=== PATIENT | male | born 1950 | race Caucasian/White ===

== ENCOUNTER 2017-11-24 18:21 | Emergency (ER) | payer MEDICARE ==
[~2017-11-24 18:21] MED LIST: CITA20TA4 PO; CLOP75TA PO; FOLI1TAB6 PO; FURO40TA PO; GEMF600T PO; GLUC1000 PO; KEPP10002 PO; LISI-515 PO; LORA-650 PO; SYMB160A INH; VENTAER INH
[2017-11-24 18:32] VITALS: BP 131/61; PULSE 81; RESP 18; TEMP 98.2; O2SAT 97
[2017-11-24 21:32] LABS: AUTOMATED NEUTROPHIL # 4.4 TH/MM3 (1.8-7.7); BASOPHIL # 0.1 TH/MM3 (0-0.2); EOSINOPHIL # 0.3 TH/MM3 (0-0.4); EOSINOPHIL % 3.8 % (0.0-4.0); HEMATOCRIT 37.4 % (39.0-51.0); HEMOGLOBIN 12.7 GM/DL (13.0-17.0); LYMPH % 32.8 % (9.0-44.0); LYMPHOCYTE # 2.7 TH/MM3 (1.0-4.8); MEAN CELL VOLUME 91.6 FL (80.0-100.0); MEAN CORPUSCULAR HEMOGLOBIN 31.2 PG (27.0-34.0); MEAN CORPUSCULAR HGB CONC 34.1 % (32.0-36.0); MEAN PLATELET VOLUME 8.3 FL (7.0-11.0); MONO % 8.9 % (0.0-8.0); MONOCYTE # 0.7 TH/MM3 (0-0.9); NEUT % 53.5 % (16.0-70.0); PLATELET COUNT 361 TH/MM3 (150-450); RED BLOOD COUNT 4.08 MIL/MM3 (4.50-5.90); RED CELL DISTRIBUTION WIDTH 13.5 % (11.6-17.2); WHITE BLOOD COUNT 8.2 TH/MM3 (4.0-11.0)
[2017-11-24 21:36] LABS: PROTHROMBIN TIME - PATIENT 9.9 SEC (9.8-11.6)
[2017-11-24 21:40] LABS: ALBUMIN 3.8 GM/DL (3.4-5.0); AST (GOT) 81 U/L (15-37); BICARBONATE 27.1 MEQ/L (21.0-32.0); BLOOD UREA NITROGEN 49 MG/DL (7-18); CALCIUM 9.3 MG/DL (8.5-10.1); CHLORIDE 104 MEQ/L (98-107); CREATININE 1.38 MG/DL (0.60-1.30); GLOMERULAR FILTRATION RATE 52 ML/MIN (>89); GLUCOSE,RANDOM 95 MG/DL (74-106); SODIUM (NA) 139 MEQ/L (136-145)
[2017-11-24 21:41] LABS: ALT (GPT) 83 U/L (12-78)
[2017-11-24 21:43] LABS: ALKALINE PHOSPHATASE 97 U/L (45-117); TOTAL BILIRUBIN ADULT 0.3 MG/DL (0.2-1.0); TOTAL PROTEIN 8.6 GM/DL (6.4-8.2)
[2017-11-25] MEDS ORDERED: traMADol HCL 50 MG TAB PO ONE (00:45)
--- NOTE | 2017-11-25 01:43 | PD ---
HPI Chief Complaint: Edema Time Seen by Provider: 00:23 Travel History International Travel<30 days: No Contact w/Intl Traveler<30days: No Traveled to known affect area: No History of Present Illness HPI Patient is a 67 year old male who comes in complaining of pain and swelling to his right leg. He says it has been going on for the past 2 weeks. He went to see his doctor who sent him for an US of his leg. He had the US done yesterday and it was negative for blood clot. He says he came in because he continues to have pain in his leg. He denies injury to the leg. He says the pain goes from his foot up to his knee. He has history of blood clots in the past. He is not on any blood thinners. He denies shortness of breath or chest pain. He says nothing seems to make the pain better. PFSH Past Medical History Congestive Heart Failure: Yes COPD: Yes Cerebrovascular Accident: Yes (TIA) Diminished Hearing: No Genitourinary: Yes (HX RENAL FAILURE) Musculoskeletal: Yes (SCOLIOSIS) Myocardial Infarction: Yes (X2) Seizures: Yes Past Surgical History Coronary Artery Bypass Graft: Yes Coronary Stent: Yes (X2) Social History Alcohol Use: No Tobacco Use: No Substance Use: No Allergies-Medications (Allergen,Severity, Reaction): Coded Allergies: No Known Allergies (Unverified Adverse Reaction, Unknown, 11/23/17) Reported Meds & Prescriptions Reported Meds & Active Scripts Active Citalopram (Citalopram Hydrobromide) 20 Mg Tab 20 Mg PO DAILY Allergy Relief (Loratadine) 10 Mg Tab 10 Mg PO DAILY Furosemide 40 Mg Tab 40 Mg PO DAILY Folic Acid 1 Mg Tablet 1 Tab PO DAILY Clopidogrel (Clopidogrel Bisulfate) 75 Mg Tab 75 Mg PO DAILY Lisinopril 20 Mg Tab 20 Mg PO DAILY Keppra (Levetiracetam) 1,000 Mg Tab 1,000 Mg PO BID Reported Trazodone (Trazodone HCl) 50 Mg Tab 50 Mg PO HS Ipratropium Owen 42 Mcg (0.06 %) [place] 1 Spr INH Q8HR Baclofen 20 Mg Tab 20 Mg PO TID Albuterol Neb (Albuterol Sulfate) 2.5 Mg/3 Ml Neb 2.5 Mg NEB TID NEB PRN Gemfibrozil 600 Mg Tab 600 Mg PO BIDAC Take 30 minutes prior to breakfast and dinner. Symbicort Inh (Budesonide/Formoterol Fumarate) 160-4.5 Mcg/Act Aero 2 Puff INH Q12HR Review of Systems Except as stated in HPI: all other systems reviewed are Neg General / Constitutional: No: Fever, Chills HENT: No: Headaches, Lightheadedness Cardiovascular: No: Chest Pain or Discomfort Respiratory: No: Shortness of Breath Gastrointestinal: No: Nausea, Vomiting Genitourinary: No: Flank Pain Musculoskeletal: Positive: Edema, Pain Skin: No Rash, No Change in Pigmentation Neurologic: No: Weakness, Dizziness Physical Exam Narrative GENERAL: Awake and alert, in no acute distress. SKIN: Focused skin assessment warm/dry. No wounds or signs of infection. HEAD: Atraumatic. Normocephalic. EYES: Pupils equal and round. No scleral icterus. ENT: Mucous membranes pink and moist. NECK: Trachea midline. No JVD. CARDIOVASCULAR: Regular rate and rhythm. No murmur appreciated. RESPIRATORY: No accessory muscle use. Clear to auscultation. Breath sounds equal bilaterally. GASTROINTESTINAL: Abdomen soft, non-tender, nondistended. MUSCULOSKELETAL: No obvious deformities. No clubbing. No cyanosis. 2+ pitting edema of the right lower extremity. Pedal pulse intact. NEUROLOGICAL: Awake and alert. No obvious cranial nerve deficits. Motor grossly within normal limits. Normal speech. PSYCHIATRIC: Appropriate mood and affect; insight and judgment normal. Data Data Last Documented VS Vital Signs Date Time Temp Pulse Resp B/P (MAP) Pulse Ox O2 Delivery O2 Flow Rate FiO2 11/25/17 00:22 82 20 98 Room Air 11/24/17 18:32 98.2 131/61 (84) Orders Orders Complete Blood Count With Diff (11/24/17 20:38) Comprehensive Metabolic Panel (11/24/17 20:38) B-Type Natriuretic Peptide (11/24/17 20:38) Act Partial Throm Time (Ptt) (11/24/17 20:38) Prothrombin Time / Inr (Pt) (11/24/17 20:38) Cta Runoff W Iv Contrast W 3d (11/25/17 ) Tramadol (Ultram) (11/25/17 00:45) Iohexol 350 Inj (Omnipaque 350 Inj) (11/25/17 02:00) Labs Laboratory Tests Test 11/24/17 21:00 White Blood Count 8.2 TH/MM3 Red Blood Count 4.08 MIL/MM3 Hemoglobin 12.7 GM/DL Hematocrit 37.4 % Mean Corpuscular Volume 91.6 FL Mean Corpuscular Hemoglobin 31.2 PG Mean Corpuscular Hemoglobin Concent 34.1 % Red Cell Distribution Width 13.5 % Platelet Count 361 TH/MM3 Mean Platelet Volume 8.3 FL Neutrophils (%) (Auto) 53.5 % Lymphocytes (%) (Auto) 32.8 % Monocytes (%) (Auto) 8.9 % Eosinophils (%) (Auto) 3.8 % Basophils (%) (Auto) 1.0 % Neutrophils # (Auto) 4.4 TH/MM3 Lymphocytes # (Auto) 2.7 TH/MM3 Monocytes # (Auto) 0.7 TH/MM3 Eosinophils # (Auto) 0.3 TH/MM3 Basophils # (Auto) 0.1 TH/MM3 CBC Comment DIFF FINAL Differential Comment Prothrombin Time 9.9 SEC Prothromb Time International Ratio 1.0 RATIO Activated Partial Thromboplast Time 25.0 SEC Blood Urea Nitrogen 49 MG/DL Creatinine 1.38 MG/DL Random Glucose 95 MG/DL Total Protein 8.6 GM/DL Albumin 3.8 GM/DL Calcium Level 9.3 MG/DL Alkaline Phosphatase 97 U/L Aspartate Amino Transf (AST/SGOT) 81 U/L Alanine Aminotransferase (ALT/SGPT) 83 U/L Total Bilirubin 0.3 MG/DL Sodium Level 139 MEQ/L Potassium Level 4.7 MEQ/L Chloride Level 104 MEQ/L Carbon Dioxide Level 27.1 MEQ/L Anion Gap 8 MEQ/L Estimat Glomerular Filtration Rate 52 ML/MIN B-Type Natriuretic Peptide 6 PG/ML [facility] Medical Decision Making Medical Screen Exam Complete: Yes Emergency Medical Condition: Yes Medical Record Reviewed: Yes Differential Diagnosis DVT vs dependent edema vs arthritis Narrative Course Patient is a 67 year old male who comes in complaining of right leg pain and swelling. Exam shows edema of the right leg. IV established, labs sent. Labs show no acute abnormalities. US performed at an outside facility shows no evidence of DVT. CTA of the extremity shows no acute abnormalities causing the swelling. Patient given Tramadol. Given a prescription for Tramadol. Advised to follow up with his PCP. Advised to return to the ED as needed for any worsening symptoms. Advised to use a compression stocking and elevate his leg. Diagnosis Primary Impression: Leg edema, right Patient Instructions: Edema (ED), General Instructions Additional Instructions: Take pain medicine as needed. Wear compression stocking. Keep her leg elevated. Return to the ED as needed for any worsening symptoms. Scripts Tramadol (Tramadol) 50 Mg Tab 50 MG PO Q6H Y for PAIN, #10 TAB 0 Refills Prov: Mackenzie Mitchell MD 11/25/17 Disposition: 01 DISCHARGE HOME Condition: Stable Mackenzie Mitchell MD Nov 25, 2017 01:43
[2017-11-25] MEDS ORDERED: IOHEXOL 350 MG/ML 10 ML VIAL (for RAD DIAG) IVCONTRAST ONE (02:00)
[2017-11-25] MEDS ORDERED: ALBU0.08 NEB (02:32)
[2017-11-25] MEDS ORDERED: IPRA0.06 INH (02:32)
[2017-11-25] MEDS ORDERED: BACL20TA PO (02:32)
[2017-11-25] MEDS ORDERED: TRAZ50TA12 PO (02:32)
--- NOTE | 2017-11-25 03:23 | RADRPT ---
EXAM DATE/TIME: 11/25/2017 01:50 [facility] COMPARISON: No previous studies available for comparison. INDICATIONS : Right lower leg pain and swelling. IV CONTRAST: 100 cc Omnipaque 350 (iohexol) IV RADIATION DOSE: 8.73 CTDIvol (mGy) MEDICAL HISTORY : Hypertension. Chronic obstructive pulmonary disease. SURGICAL HISTORY : None. ENCOUNTER: Initial ACUITY: 2 weeks PAIN SCALE: 10/10 LOCATION: Right leg TECHNIQUE: Volumetric scanning was performed using a multi-row detector CT scanner. The data was post processed with a variety of visualization algorithms including full volume maximum intensity projection, multi -planar sliding thin slab reformation, curved planar reformation, and surface rendering techniques. Using automated exposure control and adjustment of the mA and/or kV according to patient size, radiat ion dose was kept as low as reasonably achievable to obtain optimal diagnostic quality images. DICO M format image data is available electronically for review and comparison. FINDINGS: Examination of the lung bases demonstrates no abnormality. No pleural fluid is identified. No pulmona ry nodules are present. Calcified granuloma is present in the right lung. There is decreased density of the liver with respect to the spleen compatible with fatty infiltration. The spleen is unremarkabl e. There is a single stone within the gallbladder without wall thickening or pericholecystic fluid me asuring 8 mm. The pancreas demonstrates no evidence of mass and there is no dilatation of the pancrea tic duct. The adrenal glands and kidneys appear normal bilaterally. No hydronephrosis or mass lesions are identified. Examination of the right lower quadrant demonstrates no abnormality. The appendix is identified and appears normal. Examination of the pelvis demonstrates no evidence of free fluid or pelvic mass. No abnormally enlarg ed inguinal or retroperitoneal lymph nodes are present. The bladder is unremarkable. There is diverti culosis without evidence of diverticulitis. The aorta is normal in caliber. There is no evidence of aneurysm or dissection. The renal artery orig ins are patent bilaterally. The celiac artery origin is patent. 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 Cholelithiasis Examination of the right lower extremity demonstrates no evidence of inflow stenosis. The common femo ral artery is patent. The superficial femoral artery is widely patent. The popliteal segment is unrem arkable. There is three-vessel runoff to the ankle. Examination of the left lower extremity demonstra sean no evidence of inflow stenosis. The common femoral artery is patent. The superficial femoral juvenal ry is widely patent. The popliteal segment is unremarkable. There is three-vessel runoff to the ankle . CONCLUSION: 1. Negative CT angiography of the lower extremities. 2. 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 Cholelithiasis Brennon Swain MD on November 25, 2017 at 3:04 Board Certified Radiologist. This report was verified electronically.
[2017-11-25] MEDS ORDERED: TRAM50TA PO (03:58)
[2017-11-25 05:00] VITALS: BP 146/62; PULSE 81; RESP 18; O2SAT 98
[2017-12-04] MEDS ORDERED: IPRA0.06 INH (08:35)
[2017-12-04] MEDS ORDERED: ALBU0.08 NEB (08:35)
[2017-12-04] MEDS ORDERED: FOLI1TAB6 PO (08:35)
[2017-12-04] MEDS ORDERED: LISI-515 PO (08:35)
[2017-12-04] MEDS ORDERED: TRAZ50TA12 PO (08:35)
[2017-12-04] MEDS ORDERED: BACL20TA PO (08:35)
== END 2017-11-25 09:00 | disposition home or self-care (01) ==
LOC: NEPC 18:21
DX: M79.89 Other specified soft tissue disorders (principal); M79.661 Pain in right lower leg; I11.0 Hypertensive heart disease with heart failure; I50.9 Heart failure, unspecified
CPT/HCPCS: 75635; 80053; 83880; 85025; 85610; 85730; 99285; Q9967